=== PATIENT | female | born 1965 | race Caucasian/White ===

== ENCOUNTER 2017-04-29 16:53 | Emergency (ER) | payer BC, OTHER ==
[~2017-04-29 16:53] MED LIST: ASCO500C PO; BETH25TA3 PO; DOCU100S PO; FENT100D T-DERMAL; FOLI1TAB PO; LIDO5T TOP; MENA1CAP PO; METH12IN SC; METH1TAB2 PO; MIRA33502 PO; MORP20SO PO; MUCI600T PO; NEXI40CA PO; OXYC40TA20 PO; PERC10TA26 PO; PRIS50TA PO; RANI150 PO; TAB-TAB PO; TRIM100T8 PO; VALI10TA PO; VITA200017 PO; VITALIQ PO; XYZA5TAB2 PO; [UNRECOGNIZED DRUG - CODE] PO
[2017-04-29 17:13] VITALS: BP 125/85; PULSE 107; RESP 16; TEMP 97.8; O2SAT 100
[2017-04-29] MEDS ORDERED: PERC10TA27 PO (17:26)
[2017-04-29] MEDS ORDERED: BETH25 PO (17:26)
[2017-04-29] MEDS ORDERED: COLA100C5 PO (17:26)
[2017-04-29] MEDS ORDERED: ARIP2 PO (17:26)
[2017-04-29] MEDS ORDERED: ZANT150T2 PO (17:26)
[2017-04-29] MEDS ORDERED: NEXI40CA PO (17:26)
[2017-04-29] MEDS ORDERED: GUAI600T11 PO (17:26)
[2017-04-29] MEDS ORDERED: METH-715 PO (17:26)
[2017-04-29] MEDS ORDERED: FENT100D T-DERMAL (17:26)
[2017-04-29] MEDS ORDERED: MIRA3350 PO (17:26)
[2017-04-29] MEDS ORDERED: PRIS100T PO (17:26)
[2017-04-29] MEDS ORDERED: DIAZ10 PO (17:26)
[2017-04-29] MEDS ORDERED: LIDO1ADH4 (17:26)
[2017-04-29] MEDS ORDERED: MORP20SO2 PO (17:26)
[2017-04-29] MEDS ORDERED: TRIME100 PO (17:26)
[2017-04-29] MEDS ORDERED: LIDOCAINE VISCOUS 2% SOLN 15 ML UDC PO ONE (17:30)
[2017-04-29] MEDS ORDERED: ASPIRIN 81 MG CHEW TAB PO ONE (17:30)
[2017-04-29] MEDS ORDERED: ALUMINUM/MAGNESIUM/SIMETH 30 ML CUP PO ONE (17:30)
[2017-04-29] MEDS ORDERED: SODIUM CHLORIDE 0.9% FLUSH 10 ML FLUSH IVF PRN (17:30)
--- NOTE | 2017-04-29 17:56 | PD ---
HPI . Chest and epigastric pain Chief Complaint: Chest Pain Time Seen by Provider: 17:15 Travel History International Travel<30 days: No Contact w/Intl Traveler<30days: No Traveled to known affect area: No History of Present Illness HPI This patient presents with a chief complaint of chest and epigastric pain. She describes a burning sensation which radiates through to her back. Onset was last night after eating tacos. Pain is rated 6/10 with no modifying factors. The patient then goes on to talk extensively about her chronic narcotic therapy. She states that she was recently told that she would no longer be given prescriptions for fentanyl. She states that she "freaked out" and that her chronic pain immediately stopped. She reports that she is weaning herself off of oxycodone. She states that she is on high-dose narcotics because of a neurological disorder which causes chronic pain. I am under the impression from her that part of her chronic pain is chest and abdominal pain. The patient reports no associated fevers, vomiting, diarrhea or urinary tract symptoms. She is not short of breath. She does not have a cough. PFSH Past Medical History Hx Anticoagulant Therapy: No Arthritis: No Autoimmune Disease: Yes (ADHESIVE ARACHNOIDITIS) Blood Disorders: No Anxiety: Yes Depression: No Heart Rhythm Problems: No Cancer: No Cardiovascular Problems: Yes High Cholesterol: Yes Chemotherapy: No Chest Pain: No Congestive Heart Failure: No Diminished Hearing: No Endocrine: No Gastrointestinal Disorders: Yes (NARCOTIC BOWEL SYNDROME) Genitourinary: No Heparin Induced Thrombocytopen: No Hypertension: No Immune Disorder: No Implanted Vascular Access Dvce: No Musculoskeletal: Yes Neurologic: No Psychiatric: Yes Reproductive: No Respiratory: No Myocardial Infarction: No Radiation Therapy: No Sickle Cell Disease: No ?: Not Ovarian Cysts: Yes (POLYCYSTIC OVARIES) Past Surgical History Abdominal Surgery: No AICD: No Arteriovenous Shunt: No Cardiac Surgery: No Ear Surgery: No Endocrine Surgery: No Eye Surgery: No Genitourinary Surgery: No Gynecologic Surgery: Yes (OVARIES REMOVED AND RECONSTRUCTED) Insulin Pump: No Joint Replacement: No Neurologic Surgery: No Oral Surgery: No Pacemaker: No Thoracic Surgery: No Other Surgery: Yes Social History Alcohol Use: No Tobacco Use: No Substance Use: No Allergies-Medications (Allergen,Severity, Reaction): Coded Allergies: metoclopramide (Unverified Allergy, Mild, 04/29/17) adhesive (Unverified Allergy, Unknown, 04/29/17) warfarin (Unverified Allergy, Unknown, 04/29/17) Uncoded Allergies: ANTIDEPRESSANTS (Allergy, Unknown, 06/30/15) Reported Meds & Prescriptions Reported Meds & Active Scripts Active Reported Abilify (Aripiprazole) 2 Mg Tab 2 Mg PO DAILY Fentanyl Patch 72 HR (Fentanyl) 100 Mcg/Hr Patch 200 Mcg T-DERMAL Q72H Remove old patch when new one placed. Trimethoprim 100 Mg Tab 100 Mg PO EVERY OTHER DAY Hiprex (Methenamine Hippurate) 1 Gram Tab 1 Gm PO BID Mucus Relief ER (Guaifenesin) 600 Mg Tab 600 Mg PO QID PRN Urecholine (Bethanechol Chloride) 25 Mg Tab 25 Mg PO DAILY Miralax Powder (Polyethylene Glycol 3350 Powder) 17 Gm Powd 17 Gm PO DAILY Mix and dissolve one measuring cap-ful (17 grams) in water or juice. Zantac (Ranitidine HCl) 150 Mg Tab 150 Mg PO DAILY PRN Lidoderm (Lidocaine) 5 % Adh..patch Colace (Docusate Sodium) 100 Mg Capsule 300 Mg PO DAILY Nexium (Esomeprazole DR) 40 Mg Capdr 40 Mg PO DAILY Pristiq 24 HR (Desvenlafaxine ER 24 HR) 100 Mg Tab 100 Mg PO DAILY Valium (Diazepam) 10 Mg Tab 10 Mg PO TID PRN Morphine Liq (Morphine Sulfate) 20 Mg/Ml Liq 100 Mg PO Q4H Percocet (Oxycodone-Acetaminophen) 10-325 mg Tab 1 Tab PO Q4H PRN Review of Systems Except as stated in HPI: all other systems reviewed are Neg General / Constitutional: No: Fever, Chills Cardiovascular: Positive: Chest Pain or Discomfort Respiratory: No: Shortness of Breath Gastrointestinal: Positive: Abdominal Pain Genitourinary: No: Urgency, Frequency, Dysuria Physical Exam Narrative GENERAL: Awake and alert. She talks very slowly. Her mother is augmenting her history. SKIN: warm/dry. Normal color and turgor. HEAD: Normocephalic. Atraumatic. EYES: Pupils equal and round. No scleral icterus. No injection or drainage. ENT: No nasal bleeding or discharge. Mucous membranes pink and moist. NECK: Trachea midline. Full range of motion without pain.. CARDIOVASCULAR: Regular rate and rhythm. Heart sounds are normal. RESPIRATORY: No accessory muscle use. Clear to auscultation. Breath sounds equal bilaterally. GASTROINTESTINAL: Abdomen soft. Nontender. Bowel sounds present. Nondistended. Delete MUSCULOSKELETAL: No obvious deformities. NEUROLOGICAL: Awake and alert. No obvious cranial nerve deficits. Motor grossly within normal limits. Normal speech. PSYCHIATRIC: Appropriate mood and affect; insight and judgment normal. Data Data Last Documented VS Vital Signs Date Time Temp Pulse Resp B/P (MAP) Pulse Ox O2 Delivery O2 Flow Rate FiO2 04/29/17 18:59 93 16 140/81 (100) 98 Room Air 04/29/17 17:13 97.8 Orders Orders Basic Metabolic Panel (Bmp) (04/29/17 17:25) Complete Blood Count With Diff (04/29/17 17:25) Magnesium (Mg) (04/29/17 17:25) Troponin I (04/29/17 17:25) Ecg Monitoring (04/29/17 17:25) Iv Access Insert/Monitor (04/29/17 17:25) Oximetry (04/29/17 17:25) Aspirin Chew (Aspirin Chew) (04/29/17 17:30) Sodium Chloride 0.9% Flush (Ns Flush) (04/29/17 17:30) Chest, Pa & Lat (04/29/17 17:25) Al-Mag Hy-Si 40-40-4 Mg/Ml Liq (Mag-Al P (04/29/17 17:30) Lidocaine 2% Viscous (Xylocaine 2% Visco (04/29/17 17:30) Lipase (04/29/17 17:36) Electrocardiogram (04/29/17 17:13) Labs Laboratory Tests Test 04/29/17 18:04 White Blood Count 10.7 TH/MM3 Red Blood Count 5.09 MIL/MM3 Hemoglobin 15.2 GM/DL Hematocrit 45.8 % Mean Corpuscular Volume 90.0 FL Mean Corpuscular Hemoglobin 29.9 PG Mean Corpuscular Hemoglobin Concent 33.2 % Red Cell Distribution Width 12.1 % Platelet Count 397 TH/MM3 Mean Platelet Volume 8.5 FL Neutrophils (%) (Auto) 86.5 % Lymphocytes (%) (Auto) 10.3 % Monocytes (%) (Auto) 2.4 % Eosinophils (%) (Auto) 0.2 % Basophils (%) (Auto) 0.6 % Neutrophils # (Auto) 9.2 TH/MM3 Lymphocytes # (Auto) 1.1 TH/MM3 Monocytes # (Auto) 0.3 TH/MM3 Eosinophils # (Auto) 0.0 TH/MM3 Basophils # (Auto) 0.1 TH/MM3 CBC Comment DIFF FINAL Differential Comment Blood Urea Nitrogen 11 MG/DL Creatinine 0.88 MG/DL Random Glucose 112 MG/DL Calcium Level 9.6 MG/DL Magnesium Level 2.0 MG/DL Sodium Level 138 MEQ/L Potassium Level 3.4 MEQ/L Chloride Level 100 MEQ/L Carbon Dioxide Level 25.8 MEQ/L Anion Gap 12 MEQ/L Estimat Glomerular Filtration Rate 67 ML/MIN Troponin I LESS THAN 0.02 NG/ML Lipase 133 U/L MDM Medical Decision Making Medical Screen Exam Complete: Yes Emergency Medical Condition: Yes Interpretation(s) EKG shows a normal sinus rhythm with no acute ischemic changes. Differential Diagnosis Differential diagnosis of chest pain includes but is not limited to musculoskeletal pain, pulmonary embolism, acute coronary syndrome, pneumonia, pleurisy Narrative Course This patient presents with a burning chest and epigastric pain which started last night after eating tacos. I suspect a GI cause for her discomfort. It could be her neurological disorder. I do not suspect ACS. I have ordered a GI cocktail. Routine chest and abdominal pain labs are pending. CBC & BMP Diagram 04/29/17 18:04 Calcium Level 9.6, Magnesium Level 2.0 lipase 133 trop < 0.02 The history, exam, diagnostic testing, and current condition do not suggest any significant pathology to warrant further testing, continued ED treatment, admission, or surgical evaluation at this point. No EMC was found. The patient 's condition is stable and appropriate for discharge. Diagnosis Primary Impression: chest and epigastric pain Patient Instructions: Chest Pain (DC), Epigastric Pain (ED), General Instructions Condition: Stable Beulah Zhang MD Apr 29, 2017 17:56
[2017-04-29 18:11] VITALS: BP 137/81; PULSE 87; RESP 16; O2SAT 96; O2SAT 98
--- NOTE | 2017-04-29 18:13 | RADRPT ---
EXAM DATE/TIME: 04/29/2017 17:43 [facility] COMPARISON: No previous studies available for comparison. INDICATIONS : Chest pain. MEDICAL HISTORY : None. SURGICAL HISTORY : None. ENCOUNTER: Initial ACUITY: 1 day PAIN SCORE: 4/10 LOCATION: Bilateral lower chest FINDINGS: PA and lateral views of the chest demonstrate the lungs to be symmetrically aerated without evidence of mass, infiltrate or effusion. Minimal basilar atelectasis. The cardiomediastinal contours are mil dly prominent. Osseous structures are intact. CONCLUSION: 1. Minimal basilar atelectasis. Mild cardiomegaly. No effusion or pneumothorax. Víctor Bills MD on April 29, 2017 at 18:11 Board Certified Radiologist. This report was verified electronically.
[2017-04-29 18:29] LABS: AUTOMATED NEUTROPHIL # 9.2 TH/MM3 (1.8-7.7); BASOPHIL # 0.1 TH/MM3 (0-0.2); BASOPHIL % 0.6 % (0.0-2.0); EOSINOPHIL % 0.2 % (0.0-4.0); HEMATOCRIT 45.8 % (35.0-46.0); HEMOGLOBIN 15.2 GM/DL (11.6-15.3); LYMPH % 10.3 % (9.0-44.0); LYMPHOCYTE # 1.1 TH/MM3 (1.0-4.8); MEAN CORPUSCULAR HEMOGLOBIN 29.9 PG (27.0-34.0); MEAN CORPUSCULAR HGB CONC 33.2 % (32.0-36.0); MEAN PLATELET VOLUME 8.5 FL (7.0-11.0); MONO % 2.4 % (0.0-8.0); MONOCYTE # 0.3 TH/MM3 (0-0.9); NEUT % 86.5 % (16.0-70.0); PLATELET COUNT 397 TH/MM3 (150-450); RED BLOOD COUNT 5.09 MIL/MM3 (4.00-5.30); RED CELL DISTRIBUTION WIDTH 12.1 % (11.6-17.2); WHITE BLOOD COUNT 10.7 TH/MM3 (4.0-11.0)
[2017-04-29 18:59] VITALS: BP 140/81; PULSE 93; RESP 16; O2SAT 98
[2017-04-29 19:13] LABS: CHLORIDE 100 MEQ/L (98-107); SODIUM (NA) 138 MEQ/L (136-145)
[2017-04-29 19:15] LABS: CALCIUM 9.6 MG/DL (8.5-10.1)
[2017-04-29 19:16] LABS: BICARBONATE 25.8 MEQ/L (21.0-32.0); BLOOD UREA NITROGEN 11 MG/DL (7-18); GLUCOSE,RANDOM 112 MG/DL (74-106)
[2017-04-29 19:19] LABS: CREATININE 0.88 MG/DL (0.50-1.00); GLOMERULAR FILTRATION RATE 67 ML/MIN (>89)
[2017-04-29 19:24] LABS: TROPONIN I LESS THAN 0.02 NG/ML (0.02-0.05)
[2017-04-29 20:06] VITALS: BP 127/84; TEMP 98.6
--- NOTE | 2017-04-30 22:42 | EKG ---
Date Performed: 04/29/2017 Time Performed: 17:13:52 PTAGE: 51 years EKG: Sinus rhythm NONSPECIFIC T-WAVE ABNORMALITY BORDERLINE ECG NO PREVIOUS TRACING DOCTOR: Lou Churchill Interpretating Date/Time 04/30/2017 22:40:20
== END 2017-04-29 20:15 | disposition home or self-care (01) ==
LOC: PHED 16:53
DX: R07.9 Chest pain, unspecified (principal); R10.13 Epigastric pain; Z79.899 Other long term (current) drug therapy
CPT/HCPCS: 71046; 80048; 83690; 83735; 84484; 85025; 93005; 99285